=== PATIENT | male | born 1995 | race American Indian/Alaskan Native ===

== ENCOUNTER 2019-10-10 06:18 | Emergency (ER) | payer BC ==
--- NOTE | 2019-10-10 06:58 | XRay Report ---
CHEST 1 VIEW 10/10/2019 6:51 AM INDICATION / CLINICAL INFORMATION: Chest Pain. COMPARISON: None available. FINDINGS: SUPPORT DEVICES: None. HEART / MEDIASTINUM: No significant abnormality. LUNGS / PLEURA: No significant pulmonary or pleural abnormality. No pneumothorax. ADDITIONAL FINDINGS: No significant additional findings. IMPRESSION: 1. No acute abnormality of the chest. Signer Name: Byron Marcano MD Signed: 10/10/2019 6:53 AM Workstation Name: [id number]
[2019-10-10 07:50] VITALS: BP 140/72
--- NOTE | 2019-10-10 07:55 | Emergency Department Report ---
HPI - General Chief Complaint: Upper Respiratory Infection Time Seen by Provider: 10/10/19 07:43 - HPI HPI: This is a 24-year-old male patient with upper respiratory complaints include facial pain, I pain, back pain and chest pain and frequent coughing. He said he is coughing up yellow-green phlegm. Denies any nausea vomiting. Denies fever reports that he feels hot and cold. Reports pain is generalized achy/10 in headache frontally. Denies any numbness or tingling to extremities. Denies any shortness of breath. Denies any sore throat. Reports nasal congestion and runny nose. Denies any trauma to chest. No medical history. Taking over-the- counter medication for cough and cold without any relief. ED Past Medical Hx - Past Medical History Previous Medical History?: No - Surgical History Past Surgical History?: No - Family History Family history: no significant - Social History Smoking Status: Never Smoker Substance Use Type: Marijuana - Medications Home Medications: Home Medications Medication Instructions Recorded Confirmed Last Taken Type ALBUTEROL Inhaler (OR & NICU) 2 puff IH Q6H PRN #1 inhalation 10/10/19 Unknown Rx [ProAir HFA Inhaler] Amoxicillin/K Clav Tab [Augmentin 1 tab PO Q12HR 10 Days #20 tab 10/10/19 Unknown Rx 875 mg] Cetirizine HCl [ZyrTEC] 10 mg PO QAM 14 Days #14 capsule 10/10/19 Unknown Rx Fluticasone [Flonase] 1 spray NS QDAY 14 Days #1 bottle 10/10/19 Unknown Rx Ibuprofen [Motrin] 800 mg PO Q8HR PRN #12 tablet 10/10/19 Unknown Rx guaiFENesin/CODEINE [Robitussin AC] 10 ml PO QHS PRN #70 oral.liqd 10/10/19 Unknown Rx ED Review of Systems ROS: Stated complaint: EYE, BACK, CHEST PAIN,CHILLS, Other details as noted in HPI Constitutional: chills. denies: fever Eyes: eye pain. denies: eye discharge, vision change ENT: congestion. denies: ear pain, throat pain, epistaxis Respiratory: cough, wheezing. denies: shortness of breath, SOB with exertion, SOB at rest, stridor Cardiovascular: chest pain. denies: palpitations, dyspnea on exertion, edema, syncope Gastrointestinal: denies: abdominal pain, nausea, vomiting Genitourinary: denies: dysuria, hematuria Musculoskeletal: back pain. denies: joint swelling, arthralgia, myalgia Skin: denies: rash Neurological: headache, vertigo. denies: numbness, paresthesias, abnormal gait Physical Exam - Physical Exam Vital Signs: Vital Signs 10/10/19 10/10/19 06:37 07:49 Temperature 98.5 F Pulse Rate 81 Respiratory 18 Rate Blood Pressure 191/137 Blood Pressure 140/72 [Left] O2 Sat by Pulse 97 Oximetry General: This is a 24-year-old male patient well-nourished well-developed in no acute distress. Physical Exam: Head: Normocephalic atraumatic. Mouth: Oral mucosa moist, tongue is normal, uvula is midline, oral airways patent . Lungs: Scattered wheezes , dry cough, No use of accessory muscles. Neck: Supple, no tracheal deviation. No C-spine tenderness and full range of motion. Negative stridor and negative crepitus CV: S1, S2. Regular rate Eyes: Bilateral pupils equal and reactive to light, conjunctival injection or icterus. Bilateral EOM intact Nose: Mucosal congested and swollen, erythema, maxillary sinus tenderness to palpate. Clear drainage noted Skin: Clean and intact, no rash no lesions Extremity: No cce. + 2 pulses in all extremities, no neurovascular compromise. Mood: Normal mood and behavior Back: Nontender to palpate to vertebral spine from C-spine to L-spine including sacral area. No paraspinal tenderness and no CVA tenderness. No rash noted. ED Course Vital Signs 10/10/19 10/10/19 06:37 07:49 Temperature 98.5 F Pulse Rate 81 Respiratory 18 Rate Blood Pressure 191/137 Blood Pressure 140/72 [Left] O2 Sat by Pulse 97 Oximetry - Reevaluation(s) Reevaluation #1: 10/10/19 08:51 Patient receives DuoNeb 1 and Deltasone 60 mg by mouth and lungs are clear at present. He said he is feeling better. He is currently not having any pain. ED Medical Decision Making - EKG Data -: EKG Interpreted by Me (attending physician) Rate: bradycardia - EKG Data Interpretation: nonspecific ST-T wave aisha - Radiology Data Radiology results: report reviewed Chest x-ray dictated by radiologist's report reviewed by myself. No acute findings Findings [facility] [address] [place] [address] XRay Report Signed Patient: RANDI STRINGER JR MR#: [id number] : 1995 Acct:[id number] Age/Sex: 24 / M ADM Date: 10/10/19 Loc: ED Attending Dr: Ordering Physician: PRITI GARCIA MD Date of Service: 10/10/19 Procedure(s): XR chest 1V ap Accession Number(s): [id number] cc: ED MD JOSE Fluoro Time In Minutes: CHEST 1 VIEW 10/10/2019 6:51 AM INDICATION / CLINICAL INFORMATION: Chest Pain. COMPARISON: None available. FINDINGS: SUPPORT DEVICES: None. HEART / MEDIASTINUM: No significant abnormality. LUNGS / PLEURA: No significant pulmonary or pleural abnormality. No pneumothorax. ADDITIONAL FINDINGS: No significant additional findings. IMPRESSION: 1. No acute abnormality of the chest. Signer Name: Byron Marcano MD Signed: 10/10/2019 6:53 AM Workstation Name: [id number] Transcribed By: MAREN Dictated By: Byron Marcano MD Electronically Authenticated By: Byron Marcano MD Signed Date/Time: 10/10/19 0653 - Medical Decision Making This is a 24-year-old male here for cold and cough symptoms. Chest x-ray showed no acute findings and this was dictated by radiologist's report reviewed by myself. EKG revealed sinus bradycardia at 59 bpm. This was reviewed by attending physician. Patient received nebulizer treatment 1 and prednisone 60 mg . He said he said feeling much better and he is having no pain at present. I discussed the patient x-ray and EKG findings and also treatment plan, diagnosis and he voiced understanding. Patient discharged home stable condition. Vital signs stable afebrile. - Differential Diagnosis pneumonia, bronchitis, sinusitis, URI with cough and congestion Critical care attestation.: If time is entered above; I have spent that time in minutes in the direct care of this critically ill patient, excluding procedure time. ED Disposition Clinical Impression: Cough in adult patient Sinusitis nasal Qualifiers: Sinusitis location: maxillary Chronicity: acute Recurrence: not specified as recurrent Qualified Code(s): J01.00 - Acute maxillary sinusitis, unspecified Acute bronchitis Qualifiers: Bronchitis organism: unspecified organism Qualified Code(s): J20.9 - Acute bronchitis, unspecified Disposition: DC-01 TO HOME OR SELFCARE Is pt being admited?: No Does the pt Need Aspirin: No Condition: Stable Instructions: Acute Bronchitis (ED), Sinusitis (ED), Acute Cough (ED) Additional Instructions: Please take medication as prescribed Cough medicine will make you drowsy so please do not drive or operate heavy machinery while taking these medication. Output primary care physician as instructed in 2-3 days and if your condition worsens return to the emergency room. Inrease fluid intake and rest. Referrals: NIMA CAMARGO MD [Primary Care Provider] - 2-3 Days Forms: Work/School Release Form(ED)
[2019-10-10] MEDS ORDERED: IPRATROPIUM/ALBUTEROL SULFATE 3 ML AMPUL.NEB IH ONE (07:56)
[2019-10-10] MEDS ORDERED: predniSONE 20 MG TAB PO ONE (07:56)
== END 2019-10-10 09:10 | disposition home or self-care (01) ==
LOC: ED 06:18
DX: J01.00 Acute maxillary sinusitis, unspecified (principal); J20.9 Acute bronchitis, unspecified; R05 Cough; Z79.899 Other long term (current) drug therapy
CPT/HCPCS: 71045; 93005; 93010; 94640; 99283; J7512; 94644